=== PATIENT | female | born 1995 | race Two or more races ===

== ENCOUNTER 2025-07-03 02:11 | Emergency (ER) | payer SELFPAY ==
[~2025-07-03] VITALS: Ht 165.1 cm; Wt 75.0 kg
[2025-07-03] MEDS: ACETAMINOPHEN 500 MG TABLET PO ONE (02:46)
[2025-07-03 03:13] VITALS: BP 119/66; PULSE 100; RESP 20; TEMP 97.3; O2SAT 100
== END 2025-07-03 03:55 | disposition home or self-care (01) ==
LOC: EMS 02:11
DX: S01.01XA Laceration without foreign body of scalp, initial encounter (principal); S05.12XA Contusion of eyeball and orbital tissues, left eye, initial encounter; Y04.0XXA Assault by unarmed brawl or fight, initial encounter; Y93.89 Activity, other specified; Y92.89 Other specified places as the place of occurrence of the external cause; Y99.8 Other external cause status
CPT/HCPCS: 12002; 99282; Z7502

== ENCOUNTER 2025-07-16 16:58 | Emergency (ER) | payer MEDICAID ==
[~2025-07-16] VITALS: Ht 165.1 cm; Wt 72.0 kg
[2025-07-16 17:05] VITALS: BP 101/49; PULSE 74; RESP 18; TEMP 98.1; O2SAT 98
== END 2025-07-16 18:15 | disposition home or self-care (01) ==
LOC: EMS 16:58
DX: S01.01XD Laceration without foreign body of scalp, subsequent encounter (principal); X58.XXXD Exposure to other specified factors, subsequent encounter
CPT/HCPCS: 99282; Z7502